=== PATIENT | male | born 1995 | race African-American/Black ===

== ENCOUNTER 2016-10-17 11:55 | Emergency (ER) | payer OTHER ==
[~2016-10-17] VITALS: Ht 185.4 cm; Wt 93.9 kg
[2016-10-17 12:02] VITALS: BP 145/88
--- NOTE | 2016-10-17 12:32 | Emergency Room Report ---
History of Present Illness General Chief Complaint: Flu Like Symptoms Source: Patient Present Illness HPI Patient with 1 week of URI sy with cough. No ear pain or sore throat. At [place] with [employer] 4th. Had some vomiting yesterday and today. No diarrhea. Minimal nausea now. No fevers. No abdominal pain, dysuria. URI sy better. No travel. No unusual foods. Others who ate same, not ill. 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 Allergies: Coded Allergies: No Known Allergies (Unverified , 10/17/16) Patient History Past Medical History: see triage record Social History: Reports: alcohol use Social History Narrative delivery merchandiser Reviewed Nursing Documentation: PMH: Agreed, PSxH: Agreed Nursing Documentation-PMH Past Medical History: No Stated History Review of Systems All Other Systems: negative except mentioned in HPI Physical Exam Vital Signs Date Time Temp Pulse Resp B/P Pulse Ox O2 Delivery O2 Flow Rate FiO2 10/17/16 12:02 98.2 110 16 145/88 96 Room Air Sp02 EP Interpretation: reviewed, normal General Appearance: well appearing, no apparent distress Head: normocephalic, atraumatic Eyes: bilateral eye EOMI, bilateral eye normal inspection ENT: hearing grossly normal, normal pharynx, normal voice, moist mucus membranes Neck: full range of motion, supple Respiratory: lungs clear, normal breath sounds, no respiratory distress, speaking full sentences Cardiovascular #1: regular rate, rhythm Gastrointestinal: normal inspection, normal bowel sounds, non tender, soft Musculoskeletal: digits/nails normal, gait/station normal, normal range of motion Neurologic: alert, oriented x3, normal gait, grossly normal Psychiatric: mood/affect normal Skin: no rash Medical Decision Making Diagnostic Impression: Primary Impression: Viral syndrome Additional Impressions: Upper respiratory infection Qualified Codes: J06.9 - Acute upper respiratory infection, unspecified Vomiting Qualified Codes: R11.2 - Nausea with vomiting, unspecified ER Course Patient with URI prodrome and then vomiting. Ddx: viral syndrome, gastroenteritis, food poisoning, alcohol withdrawal, gastritis. No diarrhea - therefore gitis and poisoning less likely. Tachycardia suggests element of dehydration. Tolerating po now, no IV, labs indicated. Improving sy. Treat symptomatically. Patient stable for outpatient observation and treatment. Last Vital Signs Date Time Temp Pulse Resp B/P Pulse Ox O2 Delivery O2 Flow Rate FiO2 10/17/16 12:39 98.2 16 145/88 96 Room Air 10/17/16 12:10 110 Status: improved Disposition: HOME, SELF-CARE Condition: Improved Scripts Ondansetron Odt* (ZOFRAN ODT*) 4 Mg Tab.rapdis 4 MG ORAL Q6H Y for Nausea & Vomiting, #4 TAB 1 Refill Prov: Panfilo Gaines M.D. 10/17/16 Guaifenesin/Dextromethorphan (Robitussin Zgvkt-Pgoat-Fxca Dm) 1 Each Capsule 1 TSP PO Q6HR Y for cough/congestion, #90 CAP Prov: Panfilo Gaines M.D. 10/17/16 Panfilo Gaines M.D. Oct 17, 2016 12:32
[2016-10-17] MEDS ORDERED: ZOFRAN ODT4 MG ORAL (12:36)
[2016-10-17] MEDS ORDERED: ROBITUSSIN COU1 EACH PO (12:36)
[2016-10-17 12:39] VITALS: BP 145/88
== END 2016-10-17 12:39 | disposition home or self-care (01) ==
LOC: EMR 12:15
DX: J06.9 Acute upper respiratory infection, unspecified (principal); B34.9 Viral infection, unspecified; R11.10 Vomiting, unspecified
CPT/HCPCS: 99284